=== PATIENT | female | born 1960 | race African-American/Black ===

== ENCOUNTER 2017-03-25 06:12 | Day surgery (SDC) | payer OTHER ==
[2017-03-25] MEDS ORDERED: LIDOCAINE 100 MG SYRINGE (07:46)
[2017-03-25] MEDS ORDERED: PROPOFOL 40 ML (07:46)
== END 2017-03-25 10:36 | disposition home or self-care (01) ==
LOC: GIL 06:12
DX: Z12.11 Encounter for screening for malignant neoplasm of colon (principal); D12.3 Benign neoplasm of transverse colon; K64.8 Other hemorrhoids
CPT/HCPCS: 45380; 88305